=== PATIENT | female | born 1990 | race Caucasian/White ===

== ENCOUNTER 2016-05-30 10:08 | Emergency (ER) | payer MEDICAID ==
[~2016-05-30] VITALS: Ht 170.2 cm; Wt 79.4 kg
[2016-05-30 10:32] VITALS: BP 133/67
== END 2016-05-30 12:33 | disposition home or self-care (01) ==
LOC: ER 10:08
DX: M25.561 Pain in right knee (principal); F17.210 Nicotine dependence, cigarettes, uncomplicated
CPT/HCPCS: 73562; 81025